=== PATIENT | male | born 1950 | race Caucasian/White ===

== ENCOUNTER → 2025-03-03 13:25 | Outpatient (REF) | payer MEDICARE, SELFPAY | LOC: RCS 13:25 | PROVIDERS: ATTENDING PHYSICIAN Internal Medicine Cardiovascular Disease; FAMILY PHYSICIAN Internal Medicine | DX: R06.09 Other forms of dyspnea (principal); R94.31 Abnormal electrocardiogram [ECG] [EKG] | CPT/HCPCS: 93017; 93350 ==